=== PATIENT | male | born 1955 | race Caucasian/White ===

== ENCOUNTER 2022-01-31 09:39 | Day surgery (SDC) | payer MEDICARE, BC ==
[~2022-01-31 09:39] MED LIST: Lactated Ringers 1,000 ML IV SCH
[2022-01-31] MEDS ORDERED: Propofol 200 MG/20 ML SDV ONE ×3 (09:48→11:22)
[2022-01-31] MEDS ORDERED: fentaNYL 100 MCG/2 ML SDV ONE ×2 (09:48→10:43)
[2022-01-31] MEDS ORDERED: Lidocaine 2% 5 ML SDV ONE (10:42)
[2022-01-31 12:39] VITALS: BP 121/78; PULSE 73
== END 2022-01-31 12:10 | disposition home or self-care (01) ==
LOC: MW.SDS 09:39
PROVIDERS: ATTEND Surgery
DX: Z12.11 Encounter for screening for malignant neoplasm of colon (principal); D12.6 Benign neoplasm of colon, unspecified; K64.8 Other hemorrhoids; I10 Essential (primary) hypertension; G47.33 Obstructive sleep apnea (adult) (pediatric); Z88.0 Allergy status to penicillin; Z88.2 Allergy status to sulfonamides; Z88.1 Allergy status to other antibiotic agents; Z79.899 Other long term (current) drug therapy; Z79.82 Long term (current) use of aspirin; Z98.890 Other specified postprocedural states
CPT/HCPCS: 45380; 88305; J2704; J3010; J7120; 00812

== ENCOUNTER 2025-07-14 08:42 | Emergency (ER) | payer MEDICARE ==
[2025-07-14 09:47] LABS: BASOPHILS ABSOLUTE AUTO 0.04 K/uL (0.00-0.20); BASOPHILS PERCENT AUTO 0.6 % (0.0-1.0); EOSINOPHILS ABSOLUTE AUTO 0.19 K/uL (0.00-0.45); EOSINOPHILS PERCENT AUTO 2.7 % (0.0-6.0); IMMATURE GRAN ABSOLUTE AUTO 0.02 K/uL (0.00-0.05); IMMATURE GRAN PERCENT AUTO 0.3 % (0.0-0.4); LYMPHOCYTES ABSOLUTE AUTO 2.06 K/uL (1.00-4.80); LYMPHOCYTES PERCENT AUTO 28.8 % (24.0-44.0); MEAN PLATELET VOLUME 9.6 fL (9.4-12.4); MONOCYTES ABSOLUTE AUTO 0.54 K/uL (0.00-0.80); MONOCYTES PERCENT AUTO 7.6 % (0.0-8.0); NEUTROPHILS ABSOLUTE AUTO 4.30 K/uL (1.80-7.70); NEUTROPHILS PERCENT AUTO 60.0 % (41.0-71.0); NRBC ABSOLUTE 0.00 K/uL (0.00-0.02); NRBC PERCENT 0.0 /100WBC (0.0-0.2); PLATELET COUNT,PLT 173 K/uL (150-400); RED BLOOD CELL COUNT 3.41 M/uL (4.52-5.90); WHITE BLOOD CELL COUNT,WBC 7.15 K/uL (3.9-11.3)
[2025-07-14 09:58] LABS: INR 1.02 (0.86-1.11); PTT,PARTIAL THROMBOPLSTIN TIME 25.6 SEC (23.9-30.7)
[2025-07-14 10:05] LABS: A/G RATIO 1.4 (0.9-1.6); ALANINE AMINOTRANSFERASE,ALT 20.0 IU/L (14-63); ASPARTATE AMNIOTRANSFERASE,AST 16.0 IU/L (15-37); BILIRUBIN TOTAL 0.9 mg/dL (0.2-1.0); BLOOD UREA NITROGEN,BUN 67.0 mg/dL (7.0-18.0); CARBON DIOXIDE,CO2 23.3 mmol/L (21.0-32.0); CHLORIDE,CL 116.0 mmol/L (98-107); CREATININE 1.7 mg/dL (0.8-1.3); EST CRCL DRUG DOSING (CG) 47.68 mL/min; GLUCOSE RANDOM 128.0 mg/dL (74-106); POTASSIUM,K 4.4 mmol/L (3.5-5.1); PROTEIN TOTAL,TP 6.0 g/dL (6.4-8.2); SODIUM,NA 151.0 mmol/L (136-148)
[2025-07-14] MEDS: Pantoprazole 80 MG in Sodium Chloride 0.9% 20 ML IVPUSH ONE (10:14)
[2025-07-14 10:18] LABS: ESTIMATED GFR 43.0 mL/min (>60)
[2025-07-14] MEDS: Iopamidol 755 MG/ML 500 ML Multipack Bottle IVPUSH STA (10:43)
[2025-07-14 11:22] LABS: LACTIC ACID 2.4 mmol/L (0.4-2.0)
[2025-07-14 11:39] VITALS: BP 111/74; PULSE 86
== END 2025-07-14 12:55 ==
LOC: MW.ED 08:42
DX: K92.1 Melena (principal); N13.9 Obstructive and reflux uropathy, unspecified; Z88.0 Allergy status to penicillin; Z88.2 Allergy status to sulfonamides
CPT/HCPCS: 36415; 74178; 80053; 83605; 83690; 84484; 85025; 85610; 85730; 86850; 86900; 86901; 93005; 96374; 99285; J2470; J7030; Q9967; 99283